=== PATIENT | female | born 1955 | race Caucasian/White ===

== ENCOUNTER 2017-06-12 13:50 | Emergency (ER) | payer BC ==
[~2017-06-12 13:50] MED LIST: Sodium Chloride 0.9% 1,000 ML BAG ONE
[2017-06-12 15:09] LABS: Clarity Clear (Clear)
[2017-06-12 15:11] LABS: Bilirubin Large (Negative); Blood, Urine Trace (Negative); Glucose, Urine (Dipstick) Negative (Negative); Icto Positive (Negative); Leukocyte Negative (Negative); Nitrite Negative (Negative); Protein, Urine (Dipstick) > or equal to 300 mg/dL (Neg-Trace); RBC/HPF 0-3 HPF (0-3); Specific Gravity, Urine 1.028 (1.002-1.036)
[2017-06-12 15:12] LABS: Bacteria/HPF 3+ HPF (None Seen); Other Casts/LPF >50 MIXED CASTS LPF (0-3 Hyaline); WBC/HPF None Seen HPF (0-3)
[2017-06-12 15:47] LABS: #Basophils 0.1 thou/uL (0.0-0.2); #Lymphocytes 1.3 thou/uL (1.20-3.40); #Monocytes 0.8 thou/uL (0.11-0.59); #Neutrophils 5.5 thou/uL (1.40-6.50); %Basophils 1.2 % (0.0-1.0); %Eosinophils 0.4 % (0.0-10.0); %Lymphocytes 17.3 % (21.0-51.0); %Monocytes 9.9 % (0.0-10.0); %Neutrophils 71.2 % (42.0-75.0); Hemoglobin 15.9 g/dL (12.0-16.0); Mean Corpuscular HGB CONC 33.1 g/dL (32.0-36.0); Mean Corpuscular Hemoglobin 31.8 pg (27.0-31.0); Mean Platelet Volume 7.5 fL (7.4-10.4); Platelet Count 245 thou/uL (130-400); RBC Distribution Width 11.7 % (11.5-14.5); White Blood Cell (WBC) Count 7.7 thou/uL (4.8-10.8)
[2017-06-12] MEDS ORDERED: Metoclopramide HCl 10 MG/2 ML VIAL ONE (15:53)
[2017-06-12] MEDS ORDERED: Ondansetron HCl/PF 4 MG/2 ML Vial ONE (15:53)
[2017-06-12] MEDS ORDERED: Ketorolac Tromethamine 30 MG/ML VIAL ONE (15:53)
[2017-06-12 16:04] LABS: ALT (SGPT) 20 U/L (8-55); AST (SGOT) 28 U/L (5-34); Albumin 4.7 g/dL (3.4-4.8); Alkaline Phosphatase 133 U/L (40-150); Anion Gap 20 mmol/L (10-20); BUN (Urea Nitrogen) 35 mg/dL (9.8-20.1); Bilirubin, Total 0.6 mg/dL (0.2-1.2); Calc. Creatinine Clearance 0 mL/min (70-130); Calcium 10.6 mg/dL (7.8-10.44); Carbon Dioxide 23 mmol/L (23-31); Chloride 97 mmol/L (98-107); Estimated GFR-MDRD 42; Globulin 3.9 g/dL (2.4-3.5); Glucose 104 mg/dL (80-115); Lipase 52 U/L (8-78); Potassium 3.9 mmol/L (3.5-5.1); Protein, Total 8.6 g/dL (6.0-8.3); Sodium 136 mmol/L (136-145)
--- NOTE | 2017-06-12 16:37 | RAD ---
RADIOGRAPH CHEST 1 VIEW: Date: 06/12/17 Time: 1613 HOURS HISTORY: 62-year-old female with nausea, vomiting, and diarrhea. COMPARISON: 2 view study of 01/23/16. FINDINGS: There is nonspecific mildly increased attenuation at the right medial lung base, an apparently new f inding compared to prior study. This could just represent crowding of bronchovascular markings, now more visible with slight differences in degree of inspiration and position. If there are pulmonary s ymptoms, a lateral view is recommended to exclude the possibility of a small infiltrate or atelectas is. No cardiomegaly. Lateral costophrenic angles are sharp. No pulmonary edema. Upper lobes are mando r. No pneumothorax. No other interval change. IMPRESSION: 1. Nonspecific mild densities at the right medial lung base. 2. The rest of the lungs are clear. WALTER [] POS: JOSE
[2017-06-12] MEDS ORDERED: Sulfameth/Trimethoprim DS 800-160mg TAB ONE (17:21)
== END 2017-06-12 17:25 | disposition home or self-care (01) ==
LOC: MADERS 13:50
DX: E86.0 Dehydration (principal); R82.71 Bacteriuria; E78.5 Hyperlipidemia, unspecified; Z79.82 Long term (current) use of aspirin; Z79.899 Other long term (current) drug therapy
CPT/HCPCS: 36415; 71010; 80053; 81001; 82150; 83690; 85025; 87086; 96361; 96374; 96375; J1885; J2405; J2765; J7050

== ENCOUNTER 2021-09-26 13:03 | Emergency (ER) | payer BC, MEDICARE | END 2021-09-26 14:05 | disposition home or self-care (01) | LOC: MADERS 13:03 → EEVIPCON 13:03 → MADERS 14:05 | DX: T55.0X1A Toxic effect of soaps, accidental (unintentional), initial encounter (principal); F03.90 Unspecified dementia, unspecified severity, without behavioral disturbance, psychotic disturbance, mood disturbance, and anxiety; E78.5 Hyperlipidemia, unspecified; E78.00 Pure hypercholesterolemia, unspecified; Z79.82 Long term (current) use of aspirin | CPT/HCPCS: 99283 ==